=== PATIENT | male | born 1985 | race Caucasian/White ===

== ENCOUNTER 2024-04-04 20:14 | Emergency (ER) | payer BC, OTHER ==
[2024-04-04] MEDS: Ketorolac 60 MG/2 ML SDV IM ONE (21:00)
== END 2024-04-04 22:00 | disposition home or self-care (01) ==
LOC: JD.ED 20:14
DX: S83.002A Unspecified subluxation of left patella, initial encounter (principal); X50.9XXA Other and unspecified overexertion or strenuous movements or postures, initial encounter; Y93.72 Activity, wrestling
CPT/HCPCS: 73562; 96372; 99283; J1885